=== PATIENT | female | born 1945 | race Caucasian/White ===

== ENCOUNTER 2016-04-29 14:06 | Emergency (ER) | payer OTHER ==
[~2016-04-29] VITALS: Ht 170.2 cm; Wt 108.9 kg
[~2016-04-29 14:06] MED LIST: ALIGN4 MG; ASPIR 8181 MG PO; ATORVASTATIN CA20 MG PO; BACTRIM DS TAB1 EACH PO; CALCIUM + VITA1 EAC1 PO; CALCIUM CITRAT1 EA15 PO; CENTRUM SILVER1 EAC1 PO; CENTRUM SILVER1 EAC4 PO; COLACE100 MG PO; COUMADIN 2 MG TA2 M1; COUMADIN 3 MG TA3 MG PO; COUMADIN 5 MG TA5 M1; ENDOCET 5-3251 EACH PO; ENDOCET 7.5-321 EACH PO; FISH OIL 1,001000 MG PO; GLUCOSAMINE HC500 MG PO; GLUCOSAMINE-CH1 EA33 PO; HYDROCODON-ACE1 EAC8; HYDROCODON-ACE1 EAC8 PO; MAGNES PO; MIRALAX255 GM PO; MOBIC15 MG PO; NORCO 7.5-3251 EACH PO; OXYCODONE-APAP1 EAC6 PO; OXYCONTIN10 M1 PO; OXYCONTIN20 M1 PO; PERCOCET 5-3251 EACH PO; VITAMIN B-650 M1 PO; VITAMIN C PO; VITAMIN C500 M1 PO; VITAMIN D31000 UNI2 PO; [UNRECOGNIZED DRUG - OTHER] PO
== END 2016-04-29 15:55 | disposition home or self-care (01) ==
LOC: ER 14:06
DX: R04.0 Epistaxis (principal); Z96.643 Presence of artificial hip joint, bilateral; Z88.8 Allergy status to other drugs, medicaments and biological substances

== ENCOUNTER → 2016-11-10 | Outpatient (CLI) | payer OTHER | LOC: MRI 07:13 | DX: M17.12 Unilateral primary osteoarthritis, left knee (principal); M25.462 Effusion, left knee ==

== ENCOUNTER 2016-12-22 05:24 | Inpatient (IN) | payer OTHER ==
[2016-12-07 10:12] LABS: HEMATOCRIT 40.5 % (37.0-47.0); HEMOGLOBIN 13.6 gm/dL (12.0-15.0); MCH 29.1 pg (26.0-34.0); MCHC 33.7 g/dL (28.0-37.0); MCV 86.6 fL (80.0-100.0); RBC 4.68 mil/uL (4.20-5.00); RDW 14.2 % (10.5-14.5); WBC 8.2 thou/uL (4.0-11.0)
[2016-12-07 10:17] LABS: URINE BILIRUBIN NEGATIVE (Negative); URINE BLOOD NEGATIVE (Negative); URINE COLOR YELLOW; URINE GLUCOSE-RANDOM* NEGATIVE (Negative); URINE KETONES TRACE (Negative); URINE LEUKOCYTES-REFLEX 2+ (Negative); URINE PROTEIN (DIPSTICK) TRACE (Negative); URINE SPECIFIC GRAVITY >= 1.030 (1.003-1.035); URINE UROBILINOGEN 0.2 E.U./dl (0.2-1.0)
[2016-12-07 10:32] LABS: PROTIME 10.3 Seconds (9.3-11.4)
[2016-12-07 10:37] LABS: ALBUMIN 4.1 g/dL (3.4-5.0); CALCIUM 9.3 mg/dL (8.5-10.1); CREATININE 0.7 mg/dL (0.6-1.0); POTASSIUM 3.8 mmol/L (3.5-5.1)
[2016-12-07 10:44] LABS: CASTS None Seen /LPF (None Seen); CRYSTALS None Seen /LPF (None Seen); SQUAMOUS >10 Many /LPF (0-3); URINE RBC None Seen /HPF (0-2)
[2016-12-11 10:12] LABS: URINE BILIRUBIN NEGATIVE (Negative); URINE BLOOD TRACE (Negative); URINE COLOR YELLOW; URINE GLUCOSE-RANDOM* NEGATIVE (Negative); URINE KETONES NEGATIVE (Negative); URINE LEUKOCYTES-REFLEX 1+ (Negative); URINE PROTEIN (DIPSTICK) NEGATIVE (Negative); URINE SPECIFIC GRAVITY 1.025 (1.003-1.035); URINE UROBILINOGEN 0.2 E.U./dl (0.2-1.0)
[2016-12-11 10:43] LABS: SQUAMOUS >10 Many /LPF (0-3)
[2016-12-11 10:44] LABS: CASTS None Seen /LPF (None Seen); CRYSTALS None Seen /LPF (None Seen); URINE RBC 0-2 Rare /HPF (0-2); URINE WBC-REFLEX 6-15 Few /HPF (0-5)
[2016-12-22] VITALS (8 sets, daily range): BP systolic 114–146; BP diastolic 48–74
[~2016-12-22] VITALS: Ht 170.2 cm; Wt 111.1 kg
--- NOTE | ~2016-12-22 | EKG ---
[address] [address] ELECTROCARDIOGRAM REPORT Name: JOVAN DUARTE Room #: [facility]#: [id number] Admission: Attend Phys: Tyler Welsh MD Discharge: Date of : 41 Report #: [id number] THIS REPORT FOR: //name// [facility] Test Date: 2016-12-07 Test Time: 10:09:19 Pat Name: JOVAN DUARTE Department: Room: Gender: F Hide Inspector: ashley howell : 1945 Requested By: Tyler Welsh Order Number: [id number] MD: Baljit Salter Measurements Intervals [place] Rate: 71 P: 74 VT: 143 QRS: 49 QRSD: 100 T: 58 QT: 410 QTc: 446 Interpretive Statements Sinus rhythm Nonspecific ST segment abnormality Compared to ECG 01/17/2013 09:28:52 nonspecific change in the ST segment abnormality Electronically Signed On 12-08-2016 10:38:00 CDT by Baljit Saletr [email or web address] <ELECTRONICALLY SIGNED> By: Baljit Salter MD, [facility] 12/08/16 1038 1009 1009 Baljit Salter MD, [facility] /EPI
--- NOTE | ~2016-12-22 | O ---
[facility] [place] [address] OPERATIVE REPORT Name: JOVAN DUARTE Room #: 402-P [facility] IN M.R.#: [id number] Admission: 12/22/16 Attend Phys: Tyler Welsh MD Discharge: 12/26/16 Date of : 41 Report #: [id number] THIS REPORT FOR: //name// CC: Be Welsh PREOPERATIVE DIAGNOSIS: Left knee degenerative joint disease, severe; obesity with BMI of 38.37 POSTOPERATIVE DIAGNOSIS: Left knee degenerative joint disease, severe; obesity with BMI of 38.37. OPERATIVE PROCEDURE: Left total knee arthroplasty. SURGEON: Tyler Welsh MD CHROMIUM PLATER: SIN Barrett INDICATIONS FOR CHROMIUM PLATER: During the course of operation, extensive manipulation, retraction and limb positioning was required. This was afforded to me by my assistant controller. ANESTHESIA: General. INDICATIONS: See [facility] H and P revisions, 12/22/2016 IMPLANTS UTILIZED: Used a DePuy PFC knee system. We used a press-fit cruciate-retaining femoral component. We used a size 3 tibial tray with a 12.5 mm insert and a 41 mm oval dome patella. DESCRIPTION OF PROCEDURE: After adequate general anesthesia had been obtained, the patient's left lower extremity was prepped and draped in the usual meticulous sterile fashion. Limb was exsanguinated with gravity, tourniquet inflated to 350 torr. Anterior midline incision was made, subQ divided sharply. Hemostasis obtained with electrocautery. Medial parapatellar incision was made. Infrapatellar fat pad excised. Medial release performed. The drill was used to drill the distal femur. This hole was enlarged, irrigated, suctioned, and the intramedullary guide placed the full length of the femur. The distal femoral cutting guide pinned the appropriate height, distal femoral cut was made. The measuring device determined the size 4 as appropriate size for this patient. We then marked the distal femur, impacted the cutting guide into position and the anterior, posterior and chamfer cuts were made. Rongeur was used to remove additional osteophytes. At this time, the ACL was transected, tibia translated anteriorly and menisci were excised. Drill was used to drill central portion of the tibia. This hole [address] [address] OPERATIVE REPORT Name: BRAYAN DUARTEMARKO Garcia Room #: 402-P [facility] IN M.R.#: [id number] Admission: 12/22/16 Attend Phys: Tyler Welsh MD Discharge: 12/26/16 Date of : 41 Report #: [id number] was enlarged, irrigated, suctioned, and the intramedullary guide placed the full length of tibia. Proximal tibia cutting guide placed at appropriate height. Proximal tibia cut was made, 3 tray gave us the best coverage on the tibia. We then put the trial components in position; with 12.5 spacer, she had the best flexion and extension gap. Patella tracked normally. At this time, the patella was addressed, it was measured, cutting guide clamped into place, patellar cut was made. The 41 template gave us the best coverage. Pedicles were drilled, trial component put in position, it tracked normally. At this time, the knee was taken through several cycles of flexion and extension. Tibial tray rotation was marked, distal femur drilled. Trial components were removed. The tibial keel cuts were made. The knee was irrigated with both pulse lavage and antibiotic irrigation. Bone plugs were placed in the proximal tibia and distal femur. The cement was vacuum mixed and when it reached the appropriate consistency, the knee was thoroughly dried, the tibial tray was cemented in place. Excess cement was removed. The polyethylene was impacted in place and the femur impacted in place. The knee was taken out to 30 degrees of flexion with uniform compression placed across components. Patellar button was then cemented into place and again excess cement was removed. This knee was irrigated and irrigation was allowed to rest in the wound until the cement fully cured. When it had done so, the knee was irrigated, dried thoroughly, and inspected. Drains were placed superolaterally, both deep and superficial. The retinacular layer closed with combination of interrupted [id number] #1 Vicryl as well as running #1 Tevdek. SubQ was closed with 2-0 Monocryl in multiple layers due to the patient's size, which took additional time. Skin closed with sangeetha. Sterile compressive dressing was applied. Tourniquet then deflated. <ELECTRONICALLY SIGNED> By: Tyler Welsh MD 12/29/16 1411 [id number] [id number] Tyler Welsh MD /nt
[~2016-12-22 05:24] MED LIST changes: +CRANBERRY500 MG PO; +GLUCOSAMINE CH1 EAC7 PO; +HYDROCHLOROTH12.5 M1 PO; +HYDROCODONE-APA1 TA1 PO; +MAGNESIUM OXID400 MG PO; +TIZANIDINE HCL 22 M1 PO; +VITAMIN D-32000 UNIT PO
[2016-12-23 04:16] VITALS: BP 127/53
[2016-12-23 06:23] LABS: HEMATOCRIT 34.2 % (37.0-47.0); HEMOGLOBIN 11.5 gm/dL (12.0-15.0); MCH 28.7 pg (26.0-34.0); MCHC 33.7 g/dL (28.0-37.0); MCV 85.3 fL (80.0-100.0); RBC 4.01 mil/uL (4.20-5.00); RDW 14.1 % (10.5-14.5); WBC 12.4 thou/uL (4.0-11.0)
[2016-12-23 07:15] VITALS: BP 132/71
[2016-12-23 16:00] VITALS: BP 148/65
[2016-12-23 20:07] VITALS: BP 138/57
[2016-12-23 23:32] VITALS: BP 135/63
[2016-12-24 04:35] VITALS: BP 117/57
[2016-12-24 06:26] LABS: ABSOLUTE NEUTROPHILS 9.1 thou/uL (1.4-8.2); BASOPHILS 0.4 % (0.0-2.0); EOSINOPHILS 0.2 % (0.0-3.0); HEMATOCRIT 34.1 % (37.0-47.0); HEMOGLOBIN 11.4 gm/dL (12.0-15.0); LYMPHOCYTES 15.4 % (24.0-44.0); MCH 28.4 pg (26.0-34.0); MCHC 33.3 g/dL (28.0-37.0); MCV 85.4 fL (80.0-100.0); MONOCYTES 11.1 % (1.0-8.0); PLATELET COUNT 244 thou/uL (150-400); POLYS 72.9 % (36.0-66.0); RDW 14.1 % (10.5-14.5); WBC 12.5 thou/uL (4.0-11.0)
[2016-12-24 06:30] LABS: MANUAL DIFF NO
[2016-12-24 06:38] LABS: ALBUMIN 2.8 g/dL (3.4-5.0); CALCIUM 8.8 mg/dL (8.5-10.1); CREATININE 0.4 mg/dL (0.6-1.0); POTASSIUM 3.6 mmol/L (3.5-5.1); TOTAL BILIRUBIN 0.8 mg/dL (<0.1-1.0); TOTAL PROTEIN 6.4 g/dL (6.4-8.2)
[2016-12-24 08:41] VITALS: BP 118/65
[2016-12-24 16:00] VITALS: BP 118/51
[2016-12-24 19:10] VITALS: BP 125/60
[2016-12-25 04:16] LABS: HEMOGLOBIN 10.6 gm/dL (12.0-15.0); MCH 29.1 pg (26.0-34.0); MCHC 34.1 g/dL (28.0-37.0); MCV 85.5 fL (80.0-100.0); RBC 3.63 mil/uL (4.20-5.00)
[2016-12-25 04:28] LABS: CALCIUM 8.5 mg/dL (8.5-10.1); CREATININE 0.7 mg/dL (0.6-1.0); MAGNESIUM 1.9 mg/dL (1.8-2.4); POTASSIUM 3.6 mmol/L (3.5-5.1)
[2016-12-25 05:24] VITALS: BP 131/67
[2016-12-25 07:10] VITALS: BP 130/53
[2016-12-25] MEDS ORDERED: XARELTO10 MG PO (10:54)
[2016-12-25 13:47] VITALS: BP 130/53
[2016-12-25 17:07] VITALS: BP 119/49
[2016-12-25 20:10] VITALS: BP 124/50
[2016-12-26 04:18] VITALS: BP 125/53
[2016-12-26 07:08] VITALS: BP 124/57
[2016-12-26 09:28] VITALS: BP 130/53
== END 2016-12-26 13:16 | disposition home health service (06) | DRG 470 ==
LOC: TBA 05:24 → 4N 05:24 → PRE 06:40 → 4N 10:16 → PRE 15:13 → 4N 12-26 13:16
PROVIDERS: Nurse Practitioner Family; Orthopaedic Surgery
PROC: 0SRD0J9 Replacement of Left Knee Joint with Synthetic Substitute, Cemented, Open Approach (ICD-10-PCS; principal; 2016-12-22)
DX: M17.12 Unilateral primary osteoarthritis, left knee (principal); Z96.643 Presence of artificial hip joint, bilateral; I10 Essential (primary) hypertension; E78.5 Hyperlipidemia, unspecified; G47.30 Sleep apnea, unspecified; E66.9 Obesity, unspecified; K59.00 Constipation, unspecified; D72.829 Elevated white blood cell count, unspecified; Z88.8 Allergy status to other drugs, medicaments and biological substances; Z86.73 Personal history of transient ischemic attack (TIA), and cerebral infarction without residual deficits; Z68.38 Body mass index [BMI] 38.0-38.9, adult
CPT/HCPCS: 10790; 50010; 50101; 50415; 50612; 50954; 51130; 51225; 51320; 51412; 51771; 52001; 53000; 53078; 53364; 56525; 56527; 62110; 62900; 64042; 70005

== ENCOUNTER → 2018-12-06 | Outpatient (CLI) | payer OTHER ==
[~2018-12-06] MED LIST changes: +XARELTO10 MG PO
== END ==
LOC: MRI 10:45
DX: M43.16 Spondylolisthesis, lumbar region (principal); M48.061 Spinal stenosis, lumbar region without neurogenic claudication; M89.38 Hypertrophy of bone, other site; M12.88 Other specific arthropathies, not elsewhere classified, other specified site

== ENCOUNTER 2019-06-07 13:28 | Emergency (ER) | payer OTHER ==
[~2019-06-07] VITALS: Ht 170.2 cm; Wt 113.4 kg
[2019-06-07 14:29] LABS: ABSOLUTE NEUTROPHILS 2.6 thou/uL (1.4-8.2); EOSINOPHILS 3.3 % (0.0-3.0); HEMOGLOBIN 13.4 gm/dL (12.0-15.0); LYMPHOCYTES 42.9 % (24.0-44.0); MCH 28.8 pg (26.0-34.0); MCHC 32.7 g/dL (28.0-37.0); MONOCYTES 9.6 % (1.0-8.0); PLATELET COUNT 259 thou/uL (150-400); POLYS 43.2 % (36.0-66.0); RBC 4.66 mil/uL (4.20-5.00); RDW 14.1 % (10.5-14.5); WBC 5.9 thou/uL (4.0-11.0)
[2019-06-07 14:42] LABS: ANION GAP 9 mmol/L (7-16); BUN 12 mg/dL (7-18); CALCIUM 9.1 mg/dL (8.5-10.1); CHLORIDE 102 mmol/L (98-107); CO2 29 mmol/L (21-32); CREATININE 0.7 mg/dL (0.6-1.0); GLUCOSE 86 mg/dL (74-106); POTASSIUM 3.7 mmol/L (3.5-5.1); SODIUM 140 mmol/L (136-145)
[2019-06-07 14:52] LABS: SGOT 23 U/L (15-37); SGPT 25 U/L (30-65); TOTAL BILIRUBIN 0.6 mg/dL (<0.1-1.0); TOTAL PROTEIN 7.5 g/dL (6.4-8.2); TROPONIN-I <0.06 ng/mL (<0.06)
[2019-06-07] MEDS ORDERED: HYDROCODONE BIT10 MG PO (15:37)
[2019-06-07 15:43] VITALS: BP 166/78
--- NOTE | 2019-06-07 16:44 | EKG ---
[facility] [place] [address] ELECTROCARDIOGRAM REPORT Name: JOVAN DUARTE Room #: [facility]#: [id number] Admission: 06/07/19 Attend Phys: Discharge: 06/07/19 Date of : 41 Report #: [id number] THIS REPORT FOR: cc: [place] Kristin E. MD Lundgren,Baljit Luque MD [facility] THIS REPORT FOR: //name// [facility] ED Test Date: 2019-06-07 Test Time: 14:56:51 Pat Name: JOVAN DUARTE Department: Room: Gender: F Desk Operator: JOSE : 1945 Requested By: Lauren Cali Order Number: [id number] MD: Baljit Salter Measurements Intervals [place] Rate: 69 P: 46 GA: 151 QRS: 0 QRSD: 91 T: 35 QT: 418 QTc: 448 Interpretive Statements Sinus rhythm Nonspecific ST and T wave abnormality Compared to ECG 12/07/2016 10:09:19 No significant change was found Electronically Signed On 06-07-2019 16:43:20 ADVERTISING ACCOUNT MANAGER by Baljit Salter [email or web address] <ELECTRONICALLY SIGNED> By: Baljit Salter MD, [facility] 06/07/19 1643 1456 1456 aBljit Salter MD, [facility] /EPI
== END 2019-06-07 15:48 | disposition home or self-care (01) ==
LOC: ER 13:28
PROVIDERS: Physician Assistant
DX: M54.12 Radiculopathy, cervical region (principal); M79.602 Pain in left arm; M54.2 Cervicalgia; I10 Essential (primary) hypertension; E78.5 Hyperlipidemia, unspecified; G47.30 Sleep apnea, unspecified; Z88.6 Allergy status to analgesic agent; Z88.5 Allergy status to narcotic agent; Z86.73 Personal history of transient ischemic attack (TIA), and cerebral infarction without residual deficits